=== PATIENT | female | born 1935 | race Caucasian/White ===

== ENCOUNTER 2016-03-27 04:28 | Emergency (ER) | payer MEDICARE, OTHER ==
[~2016-03-27] VITALS: Ht 157.5 cm; Wt 66.5 kg
[~2016-03-27 04:28] MED LIST: ASPI81TA82 PO; FISH120014 PO; HYDR-3533 PO; METO50TA PO; SIMV20 PO; TEMA15CA PO; ULTR50TA PO; XARE10TA PO
[2016-03-27 04:41] VITALS: BP 132/93; PULSE 91; RESP 16; TEMP 98.2; O2SAT 96
--- NOTE | 2016-03-27 05:11 | PD ---
HPI Chief Complaint: Cold / Flu Symptoms Time Seen by Provider: 04:51 Travel History International Travel<30 days: No Contact w/Intl Traveler<30days: No Traveled to known affect area: No History of Present Illness HPI The patient is a 80-year-old female that complains of a mostly nonproductive cough, myalgias, chills, diarrhea for about 5 days. She does have a slight sore throat but denies any ear pain. She denies any shortness of breath. She has not had any nausea or vomiting. She denies any fever at home. The main reason she is here is because the cough keeps her awake at night and she has anterior lower bilateral rib pain when she coughs. This pain is sharp and can be reproduced by pressing on the area. She has never smoked. PFSH Past Medical History Hx Anticoagulant Therapy: Yes Cancer: Yes (cervical) Cardiovascular Problems: Yes High Cholesterol: Yes Diminished Hearing: No Deep Vein Thrombosis: Yes (r knee) Hypertension: Yes Immunizations Current: Yes Influenza Vaccination: Yes ?: Not Menopausal: Yes : 3 Para: 3 Past Surgical History Hysterectomy: Yes Tonsillectomy: Yes Social History Alcohol Use: Yes (OCCASIONAL) Tobacco Use: No Substance Use: No Allergies-Medications (Allergen,Severity, Reaction): Coded Allergies: Amoxicillin (Verified Allergy, Severe, Anaphylaxis, 03/27/16) Morphine (Verified Allergy, Severe, Anaphylaxis, 03/27/16) Lovenox (Verified Adverse Reaction, Severe, 03/27/16) STATES "IT CAUSED ME TO HAVE A BLOOD CLOT". Oxycodone (Verified Adverse Reaction, Severe, Nausea/Vomiting, 03/27/16) Reported Meds & Prescriptions Reported Meds & Active Scripts Active Tessalon Perles (Benzonatate) 100 Mg Cap 200 Mg PO TID PRN 10 Days Reported Fish Oil ([place]-3 Fatty Acids) 1,200 Mg Cap 1,200 Mg PO DAILY Xarelto (Rivaroxaban) 20 Mg Tab 20 Mg PO DAILY Metoprolol Tartrate 25 Mg Tab 12.5 Mg PO BID Temazepam 15 Mg Cap 15 Mg PO HS PRN Tramadol (Tramadol HCl) 50 Mg Tab 50 Mg PO Q8H PRN Aspirin 81 Mg Tabdr 81 Mg PO DAILY Simvastatin 20 Mg Tab 20 Mg PO DAILY Review of Systems Except as stated in HPI: all other systems reviewed are Neg Physical Exam Narrative GENERAL: Well-nourished, alert and oriented, well-developed patient in no respiratory distress. Her vital signs are normal except for blood pressure 132/ 93. SKIN: Warm and dry. No skin rashes present. HEAD: Normocephalic. EYES: No scleral icterus. No injection or drainage. NECK: Supple, trachea midline. No JVD or lymphadenopathy. There is no meningismus. CARDIOVASCULAR: Regular rate and rhythm without murmurs, gallops, or rubs. RESPIRATORY: Breath sounds equal bilaterally. No accessory muscle use. Lungs clear to auscultation bilaterally. I can completely reproduce the patient's chest pain by pressing on the anterior lower ribs bilaterally. GASTROINTESTINAL: Abdomen soft, non-tender, nondistended. No guarding or rebound is present. MUSCULOSKELETAL: No cyanosis, or edema. BACK: Nontender without obvious deformity. No CVA tenderness. ENT: The tympanic membranes are clear and the throat shows no erythema, exudate nor abscess. Data Data Last Documented VS Vital Signs Date Time Temp Pulse Resp B/P Pulse Ox O2 Delivery O2 Flow Rate FiO2 03/27/16 04:41 98.2 91 16 132/93 96 Orders Influenzae A/B Antigen (03/27/16 05:04) MDM Medical Decision Making Medical Screen Exam Complete: Yes Emergency Medical Condition: Yes Medical Record Reviewed: Yes Interpretation(s) The influenza A/B antigen is positive for flu a antigen. Differential Diagnosis Viral syndrome, flu syndrome, pneumonia, pharyngitis, otitis media, bronchitis Narrative Course The patient has influenza A. it is well over 2 days so Tamiflu is not recommended. I am reluctant to write her nonsteroidal anti-inflammatory medications because she is on Xeralto. I am reluctant to write her a narcotic cough syrup because she is allergic to morphine and oxycodone. I will write her Tessalon Perles. She should increase liquids, rest and follow-up with her primary care physician next week. Additional Instructions: Increased liquids, rest are extremely important in fighting the flu. If he get short of breath he should be reevaluated. Follow-up with her primary care physician next week. Scripts Benzonatate (Tessalon Perles)100 Mg [id number] Mg PO TID PRN (COUGH) 10 Days Ref 0 Prov:Randy Silverman MD 03/27/16 Disposition: 01 DISCHARGE HOME Condition: Stable Randy Silverman MD Mar 27, 2016 05:11
[2016-03-27] MEDS ORDERED: BENZ100 PO (05:22)
[2016-03-27] MEDS ORDERED: TRAM50TA PO (05:29)
[2016-03-27] MEDS ORDERED: SIMV20TA PO (05:29)
[2016-03-27] MEDS ORDERED: TEMA15CA PO (05:29)
[2016-03-27] MEDS ORDERED: METO25TA3 PO (05:29)
[2016-03-27] MEDS ORDERED: XARE20TA PO (05:29)
[2016-03-27] MEDS ORDERED: ASPI1TAB69 PO (05:29)
[2016-03-27] MEDS ORDERED: FISH120014 PO (05:29)
== END 2016-03-27 06:28 | disposition home or self-care (01) ==
LOC: PHED 04:28
DX: J09.X2 Influenza due to identified novel influenza A virus with other respiratory manifestations (principal); Z86.718 Personal history of other venous thrombosis and embolism; I10 Essential (primary) hypertension; E78.00 Pure hypercholesterolemia, unspecified; Z79.01 Long term (current) use of anticoagulants
CPT/HCPCS: 87804; 99284

== ENCOUNTER 2016-12-18 07:13 | Emergency (ER) | payer MEDICARE, OTHER ==
[~2016-12-18] VITALS: Ht 152.4 cm; Wt 65.0 kg
[~2016-12-18 07:13] MED LIST changes: +ASPI1TAB69 PO; -ASPI81TA82 PO; +BENZ100 PO; -HYDR-3533 PO; +METO25TA3 PO; -METO50TA PO; -SIMV20 PO; +SIMV20TA PO; +TRAM50TA PO; -ULTR50TA PO; -XARE10TA PO; +XARE20TA PO
[2016-12-18 07:17] VITALS: BP 129/91; PULSE 69; RESP 18; TEMP 97.7; O2SAT 97
[2016-12-18] MEDS ORDERED: ALLO300T2 PO (09:54)
--- NOTE | 2016-12-18 10:45 | PD ---
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 This patient complains of vaginal bleeding. She says she is positive it's coming from the vagina but she had a complete hysterectomy with no cervix or uterus. 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 Her doctor told her on Sunday he didn't see a reason for to be on it so she stopped that a few days ago. She denies rectal bleeding or melena. She is not having pain or presyncopal symptoms. Symptoms severity is mild. Duration is about 6 hours of bleeding. Symptoms could be exacerbated by Xarelto blood thinner. No alleviating factors PFSH Past Medical History Hx Anticoagulant Therapy: Yes Cancer: Yes (cervical) Cardiovascular Problems: Yes (DVT) High Cholesterol: Yes Diminished Hearing: No Deep Vein Thrombosis: Yes (r knee) Hypertension: Yes Immunizations Current: Yes ?: Not Menopausal: Yes : 3 Para: 3 Past Surgical History Hysterectomy: Yes Tonsillectomy: Yes Social History Alcohol Use: Yes (OCCASIONAL) Tobacco Use: No Substance Use: No Allergies-Medications (Allergen,Severity, Reaction): Coded Allergies: amoxicillin (Unverified Allergy, Severe, Anaphylaxis, 10/18/16) morphine (Unverified Allergy, Severe, Anaphylaxis, 10/18/16) clindamycin (Verified Allergy, Unknown, 12/18/16) enoxaparin (Unverified Adverse Reaction, Severe, 10/18/16) STATES "IT CAUSED ME TO HAVE A BLOOD CLOT". oxycodone (Unverified Adverse Reaction, Severe, Nausea/Vomiting, 10/18/16) Reported Meds & Prescriptions Reported Meds & Active Scripts Active Reported Allopurinol 300 Mg Tab 300 Mg PO DAILY Fish Oil ([place]-3 Fatty Acids) 1,200 Mg Cap 1,200 Mg PO DAILY Xarelto (Rivaroxaban) 20 Mg Tab 20 Mg PO DAILY Metoprolol Tartrate 25 Mg Tab 12.5 Mg PO BID Temazepam 15 Mg Cap 15 Mg PO HS PRN Tramadol (Tramadol HCl) 50 Mg Tab 50 Mg PO Q8H PRN Simvastatin 20 Mg Tab 20 Mg PO DAILY Review of Systems General / Constitutional: No: Fever Eyes: No: Visual changes HENT: No: Headaches Cardiovascular: No: Chest Pain or Discomfort Respiratory: No: Shortness of Breath Gastrointestinal: No: Abdominal Pain Genitourinary: Positive: Vaginal Bleeding, No: Dysuria Musculoskeletal: No: Pain Skin: No Rash Neurologic: No: Weakness Psychiatric: No: Depression Endocrine: No: Polydipsia Hematologic/Lymphatic: No: Easy Bruising Physical Exam Narrative GENERAL: Well-nourished, well-developed patient in no apparent distress. SKIN: Focused skin assessment reveals no rash and nodules. Skin is Warm and dry. HEAD: Atraumatic. Normocephalic. EYES: Pupils equal and round. No scleral icterus. No injection or drainage. ENT: No nasal bleeding or discharge. Mucous membranes pink and moist. NECK: Trachea midline. No JVD. CARDIOVASCULAR: Regular rate and rhythm. No murmur appreciated. RESPIRATORY: No accessory muscle use. Clear to auscultation. Breath sounds equal bilaterally. GASTROINTESTINAL: Abdomen soft, non-tender, nondistended. Hepatic and splenic margins not palpable. MUSCULOSKELETAL: No obvious deformities. No clubbing. No cyanosis. No edema. NEUROLOGICAL: Awake and alert. No obvious cranial nerve deficits. Motor grossly within normal limits. Normal speech. PSYCHIATRIC: Appropriate mood and affect; insight and judgment normal. Pelvic: Speculum exam was done. She has a blind pouch with pink healthy appearing tissue. I don't see a drop of blood anywhere Rectal: Brown stool is Hemoccult negative. No obvious bleeding hemorrhoid or fissure Data Data Last Documented VS Vital Signs Date Time Temp Pulse Resp B/P (MAP) Pulse Ox O2 Delivery O2 Flow Rate FiO2 12/18/16 07:17 97.7 69 18 129/91 (104) 97 Orders Orders Cath For Specimen (12/18/16 10:16) Urinalysis - C+S If Indicated (12/18/16 10:16) Complete Blood Count With Diff (12/18/16 10:16) Labs Laboratory Tests Test 12/18/16 10:20 White Blood Count 6.0 TH/MM3 Red Blood Count 4.79 MIL/MM3 Hemoglobin 10.4 GM/DL Hematocrit 34.5 % Mean Corpuscular Volume 72.0 FL Mean Corpuscular Hemoglobin 21.7 PG Mean Corpuscular Hemoglobin Concent 30.1 % Red Cell Distribution Width 19.2 % Platelet Count 215 TH/MM3 Mean Platelet Volume 8.7 FL Neutrophils (%) (Auto) 65.9 % Lymphocytes (%) (Auto) 25.9 % Monocytes (%) (Auto) 7.3 % Eosinophils (%) (Auto) 0.0 % Basophils (%) (Auto) 0.9 % Neutrophils # (Auto) 4.0 TH/MM3 Lymphocytes # (Auto) 1.6 TH/MM3 Monocytes # (Auto) 0.4 TH/MM3 Eosinophils # (Auto) 0.0 TH/MM3 Basophils # (Auto) 0.1 TH/MM3 CBC Comment DIFF FINAL Differential Comment Urine Color YELLOW Urine Turbidity CLEAR Urine pH 5.0 Urine Specific [place] 1.030 Urine Protein 30 mg/dL Urine Glucose (UA) NEG mg/dL Urine Ketones NEG mg/dL Urine Occult Blood SMALL Urine Nitrite NEG Urine Bilirubin NEG Urine Urobilinogen LESS THAN 2.0 MG/DL Urine Leukocyte Esterase NEG Urine RBC 12 /hpf Urine WBC 1 /hpf Urine Calcium Oxalate Crystals OCC /hpf Urine Hyaline Casts 6 /lpf Urine Mucus FEW /lpf Microscopic Urinalysis Comment CATH-CULT NOT IND MDM Medical Decision Making Medical Screen Exam Complete: Yes Emergency Medical Condition: Yes Medical Record Reviewed: Yes Differential Diagnosis Vaginal bleeding, rectal bleeding, hematuria Narrative Course I have reviewed the patient's electronic medical record. CBC shows mild anemia Catheterized urine shows no infection but 12 red cells I don't see evidence of vaginal or GI bleeding She has minor hematuria She is stopping her blood thinner and following up with primary care but stable for outpatient follow-up [facility] Point of Care Internal Pos. & Neg. Controls: Passed Fecal Specimen Occult Blood: Negative Diagnosis Primary Impression: Hematuria Qualified Codes: R31.9 - Hematuria, unspecified Additional Impression: Anemia Qualified Codes: D64.9 - Anemia, unspecified Additional Instructions: The patient was advised to follow up with their physician and return if they worsen. Med/Other Pt SpecificInfo: Other Disposition: 01 DISCHARGE HOME Condition: Stable Jethro Gutierrez MD Dec 18, 2016 10:45
[2016-12-18 10:48] LABS: BASOPHIL # 0.1 TH/MM3 (0-0.2); BASOPHIL % 0.9 % (0.0-2.0); HEMATOCRIT 34.5 % (35.0-46.0); HEMO FLAGS DIFF FINAL; LYMPH % 25.9 % (9.0-44.0); LYMPHOCYTE # 1.6 TH/MM3 (1.0-4.8); MEAN CORPUSCULAR HEMOGLOBIN 21.7 PG (27.0-34.0); MEAN CORPUSCULAR HGB CONC 30.1 % (32.0-36.0); MONO % 7.3 % (0.0-8.0); NEUT % 65.9 % (16.0-70.0); PLATELET COUNT 215 TH/MM3 (150-450); RED BLOOD COUNT 4.79 MIL/MM3 (4.00-5.30); RED CELL DISTRIBUTION WIDTH 19.2 % (11.6-17.2)
[2016-12-18 11:14] LABS: BLOOD, URINE SMALL (NEG); CALCIUM OXALATE CRYSTALS,URINE OCC /hpf; COMMENT (UR) CATH-CULT NOT IND; CULTURE IF INDICATED CATH CULTURE NOT IND; GLUCOSE,URINE NEG (NEG); HYALINE CAST, URINE 6 /lpf (RARE); KETONE, URINE NEG (NEG); MUCUS URINE FEW /lpf (OCC); NITRITE,URINE NEG (NEG); URINE COLOR YELLOW (YELLW/STRAW)
== END 2016-12-18 12:58 | disposition home or self-care (01) ==
LOC: NEPD 07:13
DX: R31.9 Hematuria, unspecified (principal); D64.9 Anemia, unspecified; I10 Essential (primary) hypertension; Z86.718 Personal history of other venous thrombosis and embolism
CPT/HCPCS: 81001; 85025; 99284; P9612